=== PATIENT | female | born 1940 | race African-American/Black ===

== ENCOUNTER 2019-01-12 02:39 | Emergency (ER) | payer MEDICARE, MEDICAID ==
[~2019-01-12] VITALS: Ht 160 cm; Wt 83.0 kg
[2019-01-12] MEDS: DIPHENHYDRAMINE 50MG CAPSULE PO ONE (04:43)
[2019-01-12] MEDS: FAMOTIDINE 20MG TABLET PO ONE (04:44)
[2019-01-12] MEDS: PREDNISONE 20MG TABLET PO ONE (04:47)
[2019-01-12 05:37] VITALS: BP 158/82
== END 2019-01-12 05:50 | disposition home or self-care (01) ==
LOC: ER 02:39
DX: T78.49XA Other allergy, initial encounter (principal); X58.XXXA Exposure to other specified factors, initial encounter; L50.8 Other urticaria; E11.9 Type 2 diabetes mellitus without complications; I10 Essential (primary) hypertension; Z90.710 Acquired absence of both cervix and uterus; M79.7 Fibromyalgia; Z98.890 Other specified postprocedural states
CPT/HCPCS: 99284; J7512; Q0163